=== PATIENT | male | born 1960 | race African-American/Black ===

== ENCOUNTER 2024-06-26 08:54 | Emergency (ER) | payer MEDICAID ==
[~2024-06-26] VITALS: Ht 190.5 cm; Wt 85.2 kg
[2024-06-26 09:03] VITALS: O2SAT 99
[2024-06-26] MEDS ORDERED: CEPH500C2 MT (10:56)
[2024-06-26] MEDS: ACETAMINOPHEN 500MG TABLET PO ONE (10:56)
[2024-06-26 11:00] VITALS: BP 133/72; PULSE 87; RESP 16; TEMP 36.72516; O2SAT 99
== END 2024-06-26 11:01 | disposition home or self-care (01) ==
LOC: ER 08:54
DX: M79.672 Pain in left foot (principal); L03.119 Cellulitis of unspecified part of limb; E11.9 Type 2 diabetes mellitus without complications; Z88.0 Allergy status to penicillin; Z88.6 Allergy status to analgesic agent; Z98.890 Other specified postprocedural states
CPT/HCPCS: 73630; 99283